=== PATIENT | female | born 1990 | race Two or more races ===

== ENCOUNTER 2024-11-20 04:02 | Emergency (ER) | payer OTHER ==
[~2024-11-20] VITALS: Ht 175.3 cm; Wt 98.9 kg
[2024-11-20] MEDS ORDERED: ELIQUIS2.5 MG PO (04:25)
[2024-11-20] MEDS ORDERED: MECLIZINE HCL 25 MG TABLET PO STA (05:20)
[2024-11-20] MEDS ORDERED: MECLIZINE HCL 25 MG TABLET PO ONE (05:22)
[2024-11-20 05:52] LABS: BASO % 0.4 % (0.1-1.2); EOS # 0.15 (0.04-0.54); EOS % 2.1 % (0.7-7.0); LYMPH # 2.27 (1.18-3.74); LYMPH % 31.1 % (19.3-53.1); MEAN PLATELET VOLUME 11.00 fl (9.4-12.4); MONO # 0.50 (0.24-0.82); MONO % 6.9 % (4.7-12.5); NEUT # 4.33 (1.56-6.13); NEUT % 59.4 % (34.0-71.1); RED CELL DISTRIBUTION WIDTH 15.2 % (11.6-14.4)
[2024-11-20 06:09] LABS: INR 0.96
[2024-11-20 06:15] LABS: D DIMER < 0.19 MG/L
[2024-11-20 06:51] LABS: ALT/SGPT 26.0 U/L (12-78); AST/SGOT 22.0 U/L (15-37); BILIRUBIN TOTAL 0.22 mg/dL (0.3-1.2); BUN CREA RATIO 22.0 (7.0-25.0); CREATININE SERUM 0.91 mg/dL (0.55-1.02); GFR 70.35; GLOBULINA 3.0 G/DL (2.4-3.5); GLUCOSE FASTING 111.0 mg/dL (65-100); OSMOLALITY SERUM 285.0 MOSM/KG (275-295)
== END 2024-11-20 07:24 | disposition home or self-care (01) ==
LOC: ER 04:02
DX: H81.10 Benign paroxysmal vertigo, unspecified ear (principal)